=== PATIENT | female | born 1995 | race Asian ===

== ENCOUNTER 2019-02-07 23:20 | Emergency (ER) | payer BC, MEDICAID ==
[~2019-02-07] VITALS: Ht 157.5 cm; Wt 49.0 kg
[2019-02-08] MEDS ORDERED: IBUPROFEN 600MG TABLET PO ONE
[2019-02-08] MEDS ORDERED: ACETAMINOPHEN 500MG TABLET PO ONE
[2019-02-08] MEDS ORDERED: SODIUM CHLORIDE 0.9% 1,000 ML IV ONE (01:00)
[2019-02-08] MEDS ORDERED: CLINDAMYCIN 600 MG in DEXTROSE 5% WATER 50 ML IV ONE (01:00)
[2019-02-08] MEDS ORDERED: CLINDAMYCIN 600MG PREMIX 50 ML IV ONE (01:15)
[2019-02-08 02:16] VITALS: BP 90/52
== END 2019-02-08 02:48 | disposition home or self-care (01) ==
LOC: ER 23:20
DX: J03.90 Acute tonsillitis, unspecified (principal); R50.9 Fever, unspecified
CPT/HCPCS: 96365; 99283; J3490; J7030; J7060; Z7610